=== PATIENT | female | born 1960 | race Caucasian/White ===

== ENCOUNTER 2018-03-23 18:32 | Emergency (ER) | payer BC ==
[2018-03-23 18:53] VITALS: Ht 162.6 cm
[2018-03-23 21:55] LABS: BASOPHIL % 0.3 % (0-2); PLATELET COUNT 317 x10^3mcL (130-400); RED CELL DISTRIBUTION WIDTH 13.1 % (11.5-14.5)
[2018-03-23 22:02] LABS: CALCIUM 9.7 mg/dL (8.5-10.1); CARBON DIOXIDE 28.2 mmol/L (21-32); CHLORIDE SERUM 106 mmol/L (98-107); CREATININE SERUM 0.9 mg/dL (0.6-1.0); GFR1 > 60 mL/min; GLUCOSE SERUM 100 mg/dL (74-106); POTASSIUM SERUM 4.6 mmol/L (3.5-5.1); SODIUM SERUM 142 mmol/L (136-145)
[2018-03-23 22:06] LABS: ALBUMIN 4.2 g/dL (3.4-5.0); ALKALINE PHOSPHATASE 72 U/L (46-116); ALT/SGPT 38 U/L (14-59); AST/SGOT 18 U/L (15-37); BILIRUBIN TOTAL 0.32 mg/dL (0.20-1.00); C REACTIVE PROTEIN 0.4 mg/dL (<=0.9)
[2018-03-23 22:08] LABS: TOTAL PROTEIN, SERUM 8.6 g/dL (6.4-8.2)
[2018-03-23 22:56] LABS: ERYTHROCYTE SED RATE 17 mm/hr (0-30)
[2018-03-23 23:00] VITALS: BP 131/76
== END 2018-03-23 23:00 | disposition home or self-care (01) ==
LOC: ED 18:32
PROVIDERS: Emergency Medicine
DX: R10.2 Pelvic and perineal pain (principal); M54.5 Low back pain; M46.1 Sacroiliitis, not elsewhere classified; R03.0 Elevated blood-pressure reading, without diagnosis of hypertension
CPT/HCPCS: 36415

== ENCOUNTER 2019-12-10 00:30 | Emergency (ER) | payer BC ==
[~2019-12-10] VITALS: Ht 162.6 cm; Wt 85.3 kg
[2019-12-10 00:46] VITALS: Ht 162.6 cm; Wt 85.3 kg
[2019-12-10 03:14] VITALS: BP 127/71
== END 2019-12-10 03:14 | disposition home or self-care (01) ==
LOC: ED 00:30
DX: J40 Bronchitis, not specified as acute or chronic (principal); E78.00 Pure hypercholesterolemia, unspecified; Z20.828 Contact with and (suspected) exposure to other viral communicable diseases
CPT/HCPCS: 87804; Q0092

== ENCOUNTER 2019-12-13 00:33 | Inpatient (IN) | payer BC, SELFPAY ==
[~2019-12-13] VITALS: Ht 162.6 cm; Wt 85.9 kg
[2019-12-13 00:40] VITALS: Ht 162.6 cm; Wt 85.9 kg
[2019-12-13 02:45] LABS: CALCIUM 8.8 mg/dL (8.5-10.1); CHLORIDE SERUM 101 mmol/L (98-107); CREATININE SERUM 0.9 mg/dL (0.6-1.0); GFR1 > 60 mL/min; GLUCOSE SERUM 125 mg/dL (74-106); SODIUM SERUM 137 mmol/L (136-145)
[2019-12-13 02:46] LABS: BASOPHIL % 0.2 % (0-2); PLATELET COUNT 217 x10^3mcL (130-400); RED CELL DISTRIBUTION WIDTH 13.3 % (11.5-14.5)
[2019-12-13 02:58] LABS: ALBUMIN 3.5 g/dL (3.4-5.0); ALKALINE PHOSPHATASE 87 U/L (46-116); ALT/SGPT 84 U/L (14-59); AST/SGOT 40 U/L (15-37); BILIRUBIN TOTAL 0.23 mg/dL (0.20-1.00); C REACTIVE PROTEIN 11.9 mg/dL (<=0.9); LACTIC DEHYDROGENASE (LDH) 224 U/L (100-190); TOTAL PROTEIN, SERUM 7.7 g/dL (6.4-8.2)
[2019-12-13 03:04] LABS: microscopic required? NO
[2019-12-13 03:18] LABS: urine erythrocyte NEGATIVE (NEGATIVE)
[2019-12-13 04:36] LABS: CHOLESTEROL/HDL RATIO 3.4
[2019-12-13 04:38] VITALS: BP 128/58
[2019-12-13 08:26] VITALS: BP 115/55
[2019-12-13 11:33] VITALS: BP 126/60
== END 2019-12-13 16:43 | disposition left against medical advice (07) | DRG 177 ==
LOC: ED 00:33 → DU 03:41 → MU 13:59
PROVIDERS: Emergency Medicine; ADMIT Student in an Organized Health Care Education/Training Program; ATTEND Student in an Organized Health Care Education/Training Program
DX: U07.1 COVID-19 (principal); J12.89 Other viral pneumonia; E78.00 Pure hypercholesterolemia, unspecified; E78.5 Hyperlipidemia, unspecified; R73.03 Prediabetes; R06.03 Acute respiratory distress; Z53.29 Procedure and treatment not carried out because of patient's decision for other reasons; Z79.899 Other long term (current) drug therapy
CPT/HCPCS: 36600; 82962; 83880; 85378; 87804; G0378; J0456; J0696; J1885; J7040; J7050; J7060; Q0092; U0003-CS